=== PATIENT | female | born 1950 | race Caucasian/White ===

== ENCOUNTER 2016-11-13 15:24 | Emergency (ER) | payer OTHER ==
[~2016-11-13 15:24] MED LIST: COR6 PO; D3 VITAMIN400 IU/ML PO; DIA5 PO; L40 PO; NOR10 PO; SYN1 PO; ZOC20 PO
[2016-11-13 18:16] LABS: BASOPHIL % 0.3 % (0-2); RED CELL DISTRIBUTION WIDTH 14.1 % (11.5-14.5)
[2016-11-13 18:17] LABS: PLATELET COUNT 124 x10^3mcL (130-400)
[2016-11-13 18:34] LABS: BILIRUBIN TOTAL 0.4 mg/dL (0.20-1.00); CALCIUM 8.8 mg/dL (8.5-10.1); CARBON DIOXIDE 29.6 mmol/L (21-32); MAGNESIUM 3.5 mg/dL (1.8-2.4); PHOSPHOROUS 5.6 mg/dL (2.5-4.9); POTASSIUM SERUM 5.5 mmol/L (3.5-5.1); TOTAL PROTEIN, SERUM 7.6 g/dL (6.4-8.2)
[2016-11-13 18:36] LABS: ALBUMIN 3.3 g/dL (3.4-5.0)
[2016-11-13 18:38] LABS: CREATININE SERUM 12.4 mg/dL (0.6-1.0)
[2016-11-13 20:01] VITALS: BP 154/63
== END 2016-11-13 20:01 | disposition home or self-care (01) ==
LOC: ED 15:24
PROVIDERS: Emergency Medicine
DX: S70.11XA Contusion of right thigh, initial encounter (principal); E11.22 Type 2 diabetes mellitus with diabetic chronic kidney disease; I12.0 Hypertensive chronic kidney disease with stage 5 chronic kidney disease or end stage renal disease; N18.6 End stage renal disease; E87.5 Hyperkalemia; Z79.84 Long term (current) use of oral hypoglycemic drugs; Z79.899 Other long term (current) drug therapy; Z79.1 Long term (current) use of non-steroidal anti-inflammatories (NSAID); W19.XXXA Unspecified fall, initial encounter; Y93.89 Activity, other specified; Y92.002 Bathroom of unspecified non-institutional (private) residence as the place of occurrence of the external cause; Y99.8 Other external cause status; D69.6 Thrombocytopenia, unspecified
CPT/HCPCS: 83880; J1815; J1885; J3490